=== PATIENT | male | born 1960 | race Caucasian/White ===

== ENCOUNTER → 2016-08-30 | Outpatient (CLI) | payer BC ==
--- NOTE | 2016-08-30 11:32 | FL ---
EXAMINATION TYPE: FL barium swallow w video DATE OF EXAM: 08/30/2016 11:23 AM COMPARISON: NONE HISTORY: Dysphasia TECHNIQUE: Fluoroscopy. FINDINGS: Fluoroscopic guidance was provided for the procedure performed in conjunction with the [facility] pathology department. Please see complete report forthcoming from the Speech Pathology departmen t. Various consistencies from thin liquid to solids were administered. No aspiration or penetration was evident. No significant pooling was observed in the vallecula. There was normal propulsion of the bolus. The cricopharyngeus muscle region appears to open normally. IMPRESSION: 1. Normal modified barium swallow
== END ==
LOC: RADFLMAIN 10:26
PROVIDERS: ATTEND Family Medicine
DX: R47.02 Dysphasia (principal)
CPT/HCPCS: 74230

== ENCOUNTER 2016-09-17 09:35 | Day surgery (SDC) | payer BC ==
[2016-09-12 11:20] VITALS: BMI 25.8
[~2016-09-17 09:35] MED LIST: LACTATED RINGERS 1,000 ML IV SCH; LIDOCAINE 1% 20 ML VIAL (10MG/ML) FOR IV START INTRADERMA PRN
[2016-09-17 10:48] VITALS: RESP 16; TEMP 97
[2016-09-17] MEDS ORDERED: PROPOFOL 10 MG/ML 20 ML VIAL IV ONE (11:30)
[2016-09-17 12:08] VITALS: BP 108/77; PULSE 70
--- NOTE | 2016-09-18 00:37 | P.PCN ---
Date of Procedure: 09/17/16 Procedure(s) Performed: Procedure: Esophagogastroduodenoscopy and biopsy. Preoperative diagnosis: Chronic reflux symptoms and intermittent dysphagia. Postoperative diagnosis: 1. Hiatal hernia and nonobstructing stricture at the level of the GE junction and prominent friable fold in the cardia close to the GE junction. 2. Mild gastritis and duodenitis. 3. Multiple biopsies obtained from the duodenum, antrum, cardia fold, GE junction and esophagus. Preparation and sedation: Was provided by anesthesia. Brief clinical history: The patient is a 56-year-old male Procedure: With the patient on her left lateral decubitus position and after informed consent and adequate sedation, I passed the Olympus-GIF 160 video upper endoscope through the cricopharyngeus down the esophagus. GE junction was around 40 cm from the incisors and there was a small sliding hiatal hernia. There was a non-obstructing stricture at the level of the GE junction, and the esophagus showed corrugations when not fully insufflted with air, but it did not show any erosions, ulcers, strictures or Nguyen's esophagus. The endoscope was then passed into the stomach which was insufflated with air and inspected in detail including the retroflex view in the cardia. There was a prominent fold in the cardia, close to the GE junction, somewhat friable of uncertain clinical significance. There was some mottling and erythema in the antrum but no ulcers or erosions. Pyloric channel did not show any ulcers. Duodenal bulb, post bulbar area and descending duodenum showed minimal erythema and friability, but no ulcers or erosions. I obtained biopsies from the duodenum, antrum, esophagus and GE junction, as well as the prominent fold in the cardia, then the endoscope was withdrawn. The patient tolerated the procedure well. Plan: The patient was reassured. Will await pathology results. I will see in F/ U in the office and keep you updated on his progress.
== END 2016-09-17 12:27 | disposition home or self-care (01) ==
LOC: ORWHC2ENDO 09:35
DX: K20.0 Eosinophilic esophagitis (principal); K29.50 Unspecified chronic gastritis without bleeding; K44.9 Diaphragmatic hernia without obstruction or gangrene; K29.80 Duodenitis without bleeding; I10 Essential (primary) hypertension; Z79.82 Long term (current) use of aspirin; Z79.899 Other long term (current) drug therapy; Z88.2 Allergy status to sulfonamides; Z91.09 Other allergy status, other than to drugs and biological substances
CPT/HCPCS: 88305; 88342; 43239; J2704

== ENCOUNTER → 2018-07-20 | Outpatient (CLI) | payer BC ==
[2018-07-20 10:18] LABS: Basophils # (A) 0.1 k/uL (0-0.2); Basophils % (A) 1 %; Eosinophils # (A) 0.4 k/uL (0-0.7); Eosinophils % (A) 7 %; HCT 45.8 % (39.0-53.0); HGB 15.7 gm/dL (13.0-17.5); Lymphocytes % (A) 33 %; MCH 31.9 pg (25.0-35.0); MCHC 34.2 g/dL (31.0-37.0); MCV 93.4 fL (80.0-100.0); Mean Platelet Volume 6.7; Monocytes # (A) 0.3 k/uL (0-1.0); Monocytes % (A) 5 %; Neutrophils # (A) 3.1 k/uL (1.3-7.7); Neutrophils % (A) 52 %; Platelet Count 275 k/uL (150-450); RDW 12.4 % (11.5-15.5)
[2018-07-20 17:17] LABS: Albumin 4.2 g/dL (3.80-4.90); Albumin/Globulin Ratio 1.75 (1.20-2.10); Anion Gap 8.1 mmol/L (4.00-12.00); Calcium 9.9 mg/dL (8.7-10.3); Carbon Dioxide 29.9 mmol/L (21.6-31.8); Globulin 2.4 g/dL (1.6-3.3); LDL Cholesterol,Calculated 118.2 mg/dL (0.0-131.0); Potassium 4.5 mmol/L (3.5-5.5); Total Bilirubin 0.8 mg/dL (0.2-1.2); Total Protein 6.6 g/dL (6.2-8.2); VLDL Calculation 24.8 mg/dL (5.00-40.00)
== END | disposition home or self-care (01) ==
LOC: LABWHC1 09:13
PROVIDERS: ATTEND Family Medicine
DX: Z00.00 Encounter for general adult medical examination without abnormal findings (principal)
CPT/HCPCS: 36415; 80053; 80061; 84153; 84443; 85025

== ENCOUNTER → 2021-07-27 | Outpatient (CLI) | payer BC ==
[2021-07-27 23:15] LABS: Basophils # (A) 0.04 X 10*3/uL (0.00-0.10); Basophils % (A) 0.5 %; Eosinophils # (A) 0.26 X 10*3/uL (0.04-0.35); Eosinophils % (A) 3.1 %; HGB 13.8 g/dL (13.0-17.0); Lymphocytes % (A) 23.9 %; MCH 30.3 pg (27.0-32.0); MCHC 32.1 g/dL (32.0-37.0); MCV 94.5 fL (80.0-97.0); Mean Platelet Volume 9.7 fL (9.5-12.2); Monocytes # (A) 0.83 X 10*3/uL (0.20-1.00); Monocytes % (A) 9.9 %; Neutrophils # (A) 5.22 X 10*3/uL (1.80-7.70); Neutrophils % (A) 62.2 %; Platelet Count 427 X 10*3/uL (140-440); RBC 4.55 X 10*6/uL (4.40-5.60); WBC 8.38 X 10*3/uL (4.50-10.00)
[2021-07-27 23:29] LABS: ALT 5 U/L (10-49); AST 18 U/L (14-35); Non-African American GFR(CKD) 76.8 (60.0-200.0)
[2021-07-27 23:54] LABS: Hepatitis B Surface Antigen Nonreactive (Nonreactive); Rheumatoid Factor, Qnt <10 IU/mL (0-15)
[2021-07-28 01:58] LABS: Cyclic Citrull Pep IgG Unit <0.5 U/mL; Cyclic Citrullinated Pep IgG NEGATIVE (NEGATIVE)
[2021-07-28 03:40] LABS: Hepatitis B Surface Antibody Reactive (Nonreactive)
== END | disposition home or self-care (01) ==
LOC: LABWHC1 15:46
PROVIDERS: ATTEND Dermatology Procedural Dermatology
DX: L40.0 Psoriasis vulgaris (principal); L40.59 Other psoriatic arthropathy; Z79.899 Other long term (current) drug therapy
CPT/HCPCS: 36415; 82565; 84450; 84460; 85025; 86038; 86200; 86431; 86480; 86706; 87340

== ENCOUNTER → 2022-07-19 | Outpatient (CLI) | payer BC ==
[2022-07-19 22:30] LABS: Basophils # (A) 0.05 X 10*3/uL (0.00-0.10); Basophils % (A) 0.8 %; Eosinophils # (A) 0.23 X 10*3/uL (0.04-0.35); Eosinophils % (A) 3.5 %; HCT 48.3 % (39.6-50.0); HGB 15.8 g/dL (13.0-17.0); Immature Grans, Automated 0.2 %; Lymphocytes # (A) 2.19 X 10*3/uL (0.90-5.00); Lymphocytes % (A) 33.6 %; MCH 31.7 pg (27.0-32.0); MCHC 32.7 g/dL (32.0-37.0); MCV 96.8 fL (80.0-97.0); Mean Platelet Volume 9.9 fL (9.5-12.2); Monocytes # (A) 0.53 X 10*3/uL (0.20-1.00); Monocytes % (A) 8.1 %; NRBC Per 100 WBC 0 /100 WBCS (0.0-0.0); Neutrophils % (A) 53.8 %; Platelet Count 296 X 10*3/uL (140-440); RBC 4.99 X 10*6/uL (4.40-5.60); RDW 11.9 % (11.5-14.5); WBC 6.51 X 10*3/uL (4.50-10.00)
[2022-07-19 22:41] LABS: African American GFR (CKD) 79.2 (60.0-200.0); Non-African American GFR(CKD) 68.3 (60.0-200.0)
[2022-07-19 22:51] LABS: Hepatitis B Surface Antibody Reactive (Nonreactive)
[2022-07-19 23:13] LABS: Hepatitis B Surface Antigen Nonreactive (Nonreactive); Hepatitis C IgG Antibody Nonreactive (Nonreactive)
== END | disposition home or self-care (01) ==
LOC: LABWHC1 13:35
PROVIDERS: ATTEND Dermatology Procedural Dermatology
DX: C44.529 Squamous cell carcinoma of skin of other part of trunk (principal); L40.0 Psoriasis vulgaris; L40.59 Other psoriatic arthropathy; L57.0 Actinic keratosis; Z79.899 Other long term (current) drug therapy
CPT/HCPCS: 36415; 82565; 84450; 84460; 85025; 86480; 86704; 86706; 86803; 87340

== ENCOUNTER → 2023-07-01 | Outpatient (CLI) | payer BC ==
[2023-07-01 15:22] LABS: Basophils # (A) 0.08 X 10*3/uL (0.00-0.10); Basophils % (A) 1.2 %; Eosinophils # (A) 0.52 X 10*3/uL (0.04-0.35); Eosinophils % (A) 7.7 %; HCT 46.3 % (39.6-50.0); HGB 15.2 g/dL (13.0-17.0); Lymphocytes # (A) 1.96 X 10*3/uL (0.90-5.00); Lymphocytes % (A) 29.1 %; MCHC 32.8 g/dL (32.0-37.0); MCV 94.3 FL (80.0-97.0); Mean Platelet Volume 9.8 FL (9.5-12.2); Monocytes # (A) 0.41 X 10*3/uL (0.20-1.00); Monocytes % (A) 6.1 %; NRBC Per 100 WBC 0 X 10*3/uL (0.00-0.01); Neutrophils # (A) 3.75 X 10*3/uL (1.80-7.70); Neutrophils % (A) 55.8 %; Platelet Count 293 X 10*3/uL (140-440); RBC 4.91 X 10*6/uL (4.40-5.60); RDW 12.1 % (11.5-14.5); WBC 6.73 X 10*3/uL (4.50-10.00)
[2023-07-01 15:43] LABS: ALT 7 U/L (10-49); AST 21 U/L (14-35); Albumin 4.4 g/dL (3.8-4.9); Albumin/Globulin Ratio 1.47 Ratio (1.60-3.17); Alkaline Phosphatase 80 U/L (41-126); Bilirubin, Conjugated <0.20 mg/dL (0.20-0.40); Bilirubin,Unconjugated >0.30 mg/dL (0.20-1.00); Calcium 10.1 mg/dL (8.7-10.3); Carbon Dioxide 27.4 mmol/L (21.6-31.8); Chloride 102 mmol/L (96-109); Glucose 91 mg/dL (70-110); Potassium 4.6 mmol/L (3.5-5.5); Sodium 140 mmol/L (135-145); Total Bilirubin 0.5 mg/dL (0.3-1.2); Total Protein 7.4 g/dL (6.2-8.2)
== END | disposition home or self-care (01) ==
LOC: LABWHC1 08:16
PROVIDERS: ATTEND Dermatology Procedural Dermatology
DX: L40.0 Psoriasis vulgaris (principal); L40.59 Other psoriatic arthropathy; L57.0 Actinic keratosis; L40.8 Other psoriasis; Z79.899 Other long term (current) drug therapy
CPT/HCPCS: 36415; 80048; 80076; 85025; 86480

== ENCOUNTER → 2024-07-19 | Outpatient (CLI) | payer BC ==
[2024-07-19 14:47] LABS: Basophils # (A) 0.08 X 10*3/uL (0.00-0.10); Basophils % (A) 1.4 %; Eosinophils # (A) 0.44 X 10*3/uL (0.04-0.35); Eosinophils % (A) 7.6 %; HCT 44.1 % (39.6-50.0); HGB 14.7 g/dL (13.0-17.0); Lymphocytes # (A) 2.04 X 10*3/uL (0.90-5.00); Lymphocytes % (A) 35.1 %; MCH 31.8 pg (27.0-32.0); MCHC 33.3 g/dL (32.0-37.0); MCV 95.5 FL (80.0-97.0); Mean Platelet Volume 9.6 FL (9.5-12.2); Monocytes # (A) 0.42 X 10*3/uL (0.20-1.00); Monocytes % (A) 7.2 %; NRBC Per 100 WBC 0 X 10*3/uL (0.00-0.01); Neutrophils # (A) 2.82 X 10*3/uL (1.80-7.70); Neutrophils % (A) 48.5 %; Platelet Count 311 X 10*3/uL (140-440); RBC 4.62 X 10*6/uL (4.40-5.60); WBC 5.81 X 10*3/uL (4.50-10.00)
[2024-07-19 15:03] LABS: ALT 8 U/L (10-49); AST 24 U/L (14-35); Albumin 4.2 g/dL (3.8-4.9); Alkaline Phosphatase 68 U/L (41-126); BUN/Creat Ratio 8.18 Ratio (12.00-20.00); Calcium 10.1 mg/dL (8.7-10.3); Carbon Dioxide 27.4 mmol/L (21.6-31.8); Chloride 103 mmol/L (96-109); Globulin 2.8 g/dL (1.6-3.3); Glucose 94 mg/dL (70-110); Potassium 4.7 mmol/L (3.5-5.5); Sodium 139 mmol/L (135-145); Total Bilirubin 0.6 mg/dL (0.3-1.2)
== END | disposition home or self-care (01) ==
LOC: LABWHC1 10:37
PROVIDERS: ATTEND Dermatology Procedural Dermatology
DX: L40.0 Psoriasis vulgaris (principal); L40.59 Other psoriatic arthropathy; L40.8 Other psoriasis; L57.0 Actinic keratosis; Z85.828 Personal history of other malignant neoplasm of skin; Z79.899 Other long term (current) drug therapy
CPT/HCPCS: 36415; 80053; 85025; 86480